=== PATIENT | female | born 1990 | race Asian ===

== ENCOUNTER 2022-04-03 12:50 | Emergency (ER) | payer BC ==
[~2022-04-03] VITALS: Ht 167.6 cm; Wt 56.8 kg
[~2022-04-03 12:50] MED LIST: RALTEGRAVIR 400 MG TAB (ISENTRESS) PO SCH; TRUVADA 200MG/300MG TABLET PO SCH
[2022-04-03 13:06] VITALS: BP 136/77
[2022-04-03 13:26] LABS: BASO % 0.6 % (0.0-1.0); EOS % 0.5 % (0.0-3.0); HEMATOCRIT 39.2 % (36.0-47.0); HEMOGLOBIN 12.6 g/dl (12.0-15.5); LYMPH % 45.3 % (24.0-44.0); MEAN CORPUSCULAR HEMOGLOBIN 27.4 pg (27.0-33.0); MEAN CORPUSCULAR HGB CONC 32.1 g/dl (32.0-36.5); MEAN CORPUSCULAR VOLUME 85.2 fl (80.0-96.0); MONO # 0.3 10^3/uL (0.0-0.8); MONO % 4.5 % (2.0-8.0); NEUTROPHILS # 3.3 10^3/uL (1.5-8.5); NEUTROPHILS % 48.9 % (36.0-66.0); PLATELET COUNT, AUTOMATED 320 10^3/uL (150-450); WHITE BLOOD COUNT 6.7 10^3/uL (4.0-10.0)
[2022-04-03 14:11] LABS: ALBUMIN 3.8 GM/DL (3.2-5.2); ALT/SGPT 55 U/L (12-78); BILIRUBIN,TOTAL 0.4 MG/DL (0.2-1.0); BLOOD UREA NITROGEN 7 MG/DL (7-18); CALCIUM LEVEL 9.2 MG/DL (8.5-10.1); CARBON DIOXIDE LEVEL 27 MEQ/L (21-32); CHLORIDE LEVEL 105 MEQ/L (98-107); CREATININE FOR GFR 0.56 MG/DL (0.55-1.30); GLOMERULAR FILTRATION RATE > 60.0 (>60); GLUCOSE, FASTING 99 MG/DL (70-100); SODIUM LEVEL 137 MEQ/L (136-145); TOTAL PROTEIN 7.5 GM/DL (6.4-8.2)
[2022-04-03] MEDS ORDERED: EXPOSURE KIT-ADULT 7 DAY SUPPLY PO ONE (18:20)
[2022-04-03] MEDS ORDERED: EMTR1TAB16 PO (18:22)
[2022-04-03] MEDS ORDERED: RALT40TA PO (18:22)
[2022-04-03] MEDS ORDERED: RALTEGRAVIR 400 MG TAB (ISENTRESS) PO ONE (18:35)
[2022-04-03] MEDS ORDERED: TRUVADA 200MG/300MG TABLET PO ONE (18:35)
[2022-04-05 10:51] LABS: HEPATITIS B SURFACE ANTIBODY POSITIVE (POSITIVE)
[2022-04-05 11:03] LABS: HEPATITIS B SURFACE ANTIGEN NEGATIVE (NEGATIVE)
[2022-04-05 11:30] LABS: HEPATITIS C VIRUS ABY INDEX < 0.0 INDEX (<0.8)
== END 2022-04-03 13:25 | disposition home or self-care (01) ==
LOC: M ED 12:50
DX: Z77.21 Contact with and (suspected) exposure to potentially hazardous body fluids (principal); W46.1XXA Contact with contaminated hypodermic needle, initial encounter; Y99.0 Civilian activity done for income or pay

== ENCOUNTER → 2022-06-10 | Outpatient (REF) | payer BC ==
[~2022-06-10] MED LIST changes: +EMTR1TAB16 PO; +RALT40TA PO; -RALTEGRAVIR 400 MG TAB (ISENTRESS) PO SCH; -TRUVADA 200MG/300MG TABLET PO SCH
[2022-06-10 19:12] LABS: HEMATOCRIT 38.5 % (36.0-47.0); HEMOGLOBIN 12.6 g/dl (12.0-15.5); MEAN CORPUSCULAR HEMOGLOBIN 27.9 pg (27.0-33.0); MEAN CORPUSCULAR HGB CONC 32.7 g/dl (32.0-36.5); MEAN CORPUSCULAR VOLUME 85.2 fl (80.0-96.0); PLATELET COUNT, AUTOMATED 344 10^3/uL (150-450); RED BLOOD COUNT 4.52 10^6/uL (4.00-5.40); WHITE BLOOD COUNT 8.9 10^3/uL (4.0-10.0)
[2022-06-10 19:59] LABS: HEPATITIS B SURFACE ANTIGEN NEGATIVE (NEGATIVE)
[2022-06-10 20:12] LABS: HIV 1&2 SCREEN CENTAUR NEGATIVE (NEGATIVE)
[2022-06-10 20:20] LABS: HEPATITIS C VIRUS ABY INDEX 0.1 INDEX (<0.8)
[2022-06-10 20:25] LABS: HCG, SERUM QUANTITATIVE 3992.7 MIU/ML (<4.2)
== END ==
LOC: M LAB REF 16:49
PROVIDERS: ATTEND Obstetrics & Gynecology
DX: Z32.01 Encounter for pregnancy test, result positive (principal); O36.80X0 Pregnancy with inconclusive fetal viability, not applicable or unspecified

== ENCOUNTER → 2022-06-24 | Outpatient (CLI) | payer BC | LOC: M RAD 13:56 | PROVIDERS: ATTEND Obstetrics & Gynecology | DX: Z32.01 Encounter for pregnancy test, result positive (principal); O36.80X0 Pregnancy with inconclusive fetal viability, not applicable or unspecified; Z3A.01 Less than 8 weeks gestation of pregnancy ==

== ENCOUNTER → 2022-11-11 | Outpatient (CLI) | payer BC | LOC: M RAD 10:35 | PROVIDERS: ATTEND Obstetrics & Gynecology | DX: O34.12 Maternal care for benign tumor of corpus uteri, second trimester (principal); Z3A.27 27 weeks gestation of pregnancy ==

== ENCOUNTER → 2022-11-11 | Outpatient (CLI) | payer BC ==
[2022-11-11 09:49] LABS: HEMATOCRIT 31.4 % (36.0-47.0); HEMOGLOBIN 10.1 g/dl (12.0-15.5); MEAN CORPUSCULAR HEMOGLOBIN 28.6 pg (27.0-33.0); MEAN CORPUSCULAR HGB CONC 32.2 g/dl (32.0-36.5); PLATELET COUNT, AUTOMATED 241 10^3/uL (150-450); RED BLOOD COUNT 3.53 10^6/uL (4.00-5.40); WHITE BLOOD COUNT 9.4 10^3/uL (4.0-10.0)
== END ==
LOC: M LAB 08:13
PROVIDERS: ATTEND Obstetrics & Gynecology
DX: Z34.02 Encounter for supervision of normal first pregnancy, second trimester (principal)

== ENCOUNTER → 2022-11-25 | Outpatient (CLI) | payer BC | LOC: M LAB 07:15 | PROVIDERS: ATTEND Obstetrics & Gynecology | DX: O99.810 Abnormal glucose complicating pregnancy (principal); Z3A.00 Weeks of gestation of pregnancy not specified ==

== ENCOUNTER → 2023-01-05 | Outpatient (CLI) | payer BC | LOC: M RAD 15:06 | PROVIDERS: ATTEND Obstetrics & Gynecology | DX: O24.410 Gestational diabetes mellitus in pregnancy, diet controlled (principal); Z36.89 Encounter for other specified antenatal screening; Z3A.35 35 weeks gestation of pregnancy ==

== ENCOUNTER 2023-02-03 09:52 | Inpatient (IN) | payer BC ==
[2023-02-03] VITALS (32 sets, daily range): BP systolic 85–157; BP diastolic 52–80; O2SAT 97–100
[~2023-02-03] VITALS: Ht 170.2 cm; Wt 80.0 kg
[2023-02-03] MEDS: PRENATAL VITAMINS CHEWABLE TABLET PO SCH (09:00)
[2023-02-03] MEDS ORDERED: LACTATED RINGER'S 1000 ML IV STA (09:53)
[2023-02-03] MEDS ORDERED: PRENTAB9 PO (10:49)
[2023-02-03] MEDS ORDERED: HOME MED LIST COMPLETE! XX SCH (10:50)
[2023-02-03] MEDS ORDERED: FERR325T3 PO (10:50)
[2023-02-03 10:58] LABS: BASO % 0.2 % (0.0-1.0); EOS % 0.3 % (0.0-3.0); HEMATOCRIT 33.9 % (36.0-47.0); HEMOGLOBIN 11.2 g/dl (12.0-15.5); LYMPH % 21.4 % (24.0-44.0); MEAN CORPUSCULAR HEMOGLOBIN 28.1 pg (27.0-33.0); MEAN CORPUSCULAR VOLUME 85.2 fl (80.0-96.0); MONO # 0.6 10^3/uL (0.0-0.8); MONO % 6.3 % (2.0-8.0); NEUTROPHILS # 6.5 10^3/uL (1.5-8.5); NEUTROPHILS % 70.2 % (36.0-66.0); PLATELET COUNT, AUTOMATED 197 10^3/uL (150-450); RED BLOOD COUNT 3.98 10^6/uL (4.00-5.40); WHITE BLOOD COUNT 9.3 10^3/uL (4.0-10.0)
[2023-02-03] MEDS ORDERED: OXYTOCIN DRIP 30 UNITS in IV 1 EA IV SCH (12:00)
[2023-02-03] MEDS: LR 1,000 ML IV SCH ×2 (12:18→16:34)
[2023-02-03] MEDS ORDERED: FENTANYL 2MCG/ML ROPIVACAINE 0.2% IN 0.9% NACL 100ML IVBAG As Ordered ONE (12:48)
[2023-02-03] MEDS ORDERED: FENTANYL/ROPIVACAINE/NACL BAG 100 ML EPIDURAL SCH (12:50)
[2023-02-03] MEDS ORDERED: diphenhydrAMINE 50MG/ML VIAL IV PRN (12:50)
[2023-02-03] MEDS ORDERED: EPIDURAL/PCA KEYS XX PRN (12:50)
[2023-02-03] MEDS ORDERED: NALOXONE INJ 0.4MG/1ML VIAL IV PRN (12:50)
[2023-02-03] MEDS ORDERED: ONDANSETRON 4MG 2ML VIAL IV PRN (12:50)
[2023-02-03] MEDS ORDERED: ePHEDrine SULFATE 25 MG/5 ML(5MG/ML) SYRINGE IVP PRN (12:50)
[2023-02-03] MEDS ORDERED: LR 500 ML IV PRN (12:50)
[2023-02-03 17:26] LABS: CORD GAS ABE V -4.1; CORD GAS HCO3 V 20.5 MMOL/L; CORD GAS PCO2 V 36.6 mmHg; CORD GAS PH V 7.367 UNITS; CORD GAS PO2 V 45.9 mmHg; CORD GAS SBC V 20.9 MMOL/L; CORD GAS TCO2 V 21.7 MMOL/L
[2023-02-03 17:27] LABS: CORD GAS ABE A -5.3; CORD GAS HCO3 A 20.8 MMOL/L; CORD GAS O2 SAT A 86.9 %; CORD GAS PCO2 A 42.7 mmHg; CORD GAS PH A 7.306 UNITS; CORD GAS PO2 A 43.7 mmHg; CORD GAS SBC A 19.9 MMOL/L; CORD GAS TCO2 A 22.1 MMOL/L
[2023-02-03] MEDS ORDERED: METHYLERGONOVINE MALEATE 0.2 MG TAB PO PRN (17:40)
[2023-02-03] MEDS ORDERED: DIBUCAINE 1% OINTMENT 30GM TOP PRN (17:40)
[2023-02-03] MEDS ORDERED: DOCUSATE SODIUM 100MG CAPSULE PO PRN (17:40)
[2023-02-03] MEDS ORDERED: RHOGAM 300MCG (1500IU) INJ IM SCH (17:40)
[2023-02-03] MEDS ORDERED: IBUPROFEN 600MG TAB PO PRN (17:40)
[2023-02-03] MEDS ORDERED: ACETAMINOPHEN TAB 650MG DOSE (2X325MG) PO PRN (17:40)
[2023-02-04] MEDS: IBUPROFEN 800 MG TAB PO PRN ×2 (00:30→13:35)
[2023-02-04 06:00] VITALS: BP 102/58
[2023-02-04] MEDS: ACETAMINOPHEN 500 MG TAB PO PRN ×2 (06:39→21:40)
[2023-02-04] MEDS: PRENATAL VITAMINS CHEWABLE TABLET PO SCH (08:25)
[2023-02-04 18:00] VITALS: BP 89/48; O2SAT 98
[2023-02-04 18:30] VITALS: BP 113/60
[2023-02-05] MEDS: ACETAMINOPHEN 500 MG TAB PO PRN (03:51)
[2023-02-05 05:56] VITALS: BP 104/61; O2SAT 99
[2023-02-05] MEDS: PRENATAL VITAMINS CHEWABLE TABLET PO SCH (07:35)
[2023-02-05] MEDS ORDERED: MEASLES,MUMPS,RUBELLA VACCINE INJ (MMR-II) SC.IMMUN ONE (09:00)
== END 2023-02-05 13:25 | disposition home or self-care (01) | DRG 560 ==
LOC: M LDI 09:52 → M OBS 19:54
PROVIDERS: ADMIT Obstetrics & Gynecology; ATTEND Obstetrics & Gynecology
PROC: 10E0XZZ Delivery of Products of Conception, External Approach (ICD-10-PCS; principal; 2023-02-03)
PROC: 0KQM0ZZ Repair Perineum Muscle, Open Approach (ICD-10-PCS; 2023-02-03)
DX: O24.420 Gestational diabetes mellitus in childbirth, diet controlled (principal); O64.5XX0 Obstructed labor due to compound presentation, not applicable or unspecified; Z37.0 Single live birth; Z3A.39 39 weeks gestation of pregnancy; O70.1 Second degree perineal laceration during delivery